=== PATIENT | female | born 1930 | race Caucasian/White ===

== ENCOUNTER 2017-05-01 17:44 | Emergency (ER) | payer MEDICARE, BC ==
[2017-05-01] MEDS: Aspirin 81 MG Tab.Chew ONE ×2 (18:07→19:31)
[2017-05-01 18:14] VITALS: BP 67/44
--- NOTE | 2017-05-01 18:16 | EDM.PDOC ---
ED HPI GENERAL MEDICAL PROBLEM - General Chief Complaint: General Stated Complaint: DEHYDRATED?? Time Seen by Provider: 05/01/17 17:56 Source of Information: Reports: Patient, EMS, Family (granddaughter) History Limitations: Reports: No Limitations - History of Present Illness INITIAL COMMENTS - FREE TEXT/NARRATIVE: Patient presents via ambulance with shortness of breath and chest heaviness. Her granddaughter says last evening pt was saying she had a little heaviness and wasn't feeling very well. EMS also reported dehydration with dyspnea. Patient has chronic A Fib and is on warfarin. She denies chest pain but still has the heaviness; it gets better at times and worse but never goes completely away. No vomiting, abdominal pain or sweating. No arm, shoulder, neck or jaw pain. No history of [place] or stents. No diabetes. She has CHF, A Fib and hypertension. - Related Data Allergies Allergy/AdvReac Type Severity Reaction Status Date / Time aspirin Allergy unknown Verified 05/01/17 18:00 [From Fiorinal-Codeine #3] butalbital Allergy unknown Verified 05/01/17 18:00 [From Fiorinal-Codeine #3] codeine phosphate Allergy unknown Verified 05/01/17 18:00 [From Fiorinal-Codeine #3] lactose Allergy Abdominal Verified 05/01/17 18:00 Pain lisinopril Allergy Cough Verified 05/01/17 18:00 Penicillins Allergy unknown Verified 05/01/17 18:00 Home Meds: Home Meds Furosemide 40 mg PO BID 11/12/13 [History] Warfarin [Coumadin] 2.5 mg PO ASDIRECTED 11/12/13 [History] amLODIPine Besylate [Amlodipine Besylate] 5 mg PO QPM 11/12/13 [History] Calcium Carbonate [Tums Extra Strength] 1,500 mg PO BEDTIME #100 tab.chew [Rx] Cholecalciferol (Vitamin D3) [Vitamin D3] 1,000 units PO DAILY #60 tablet [Rx] Metoprolol Tartrate [Lopressor] 25 mg PO BID #60 tablet 11/15/13 [Rx] Potassium Chloride [Klor-Con 10] 20 meq PO BIDM #60 tab.er 11/15/13 [Rx] Arformoterol [Brovana] 15 mcg INH BID 05/01/17 [History] Budesonide [Pulmicort] 0.5 mg INH BID 05/01/17 [History] Ca/D3/Mag#11/Zinc/Chief Nuclear Medicine Technologist/Edvin/Bor [Caltrate 600+D Plus Tablet] 1 tab PO BIDMEALS [History] Esomeprazole [NexIUM] 40 mg PO DAILY 05/01/17 [History] Levothyroxine [Synthroid] 88 mcg PO DAILY 05/01/17 [History] Losartan [Cozaar] 50 mg PO DAILY 05/01/17 [History] Melatonin/Pyridoxine HCl (B6) [Melatonin 3 mg Tablet] 3 mg PO BEDTIME 05/01/17 [ History] Metolazone [Zaroxolyn] 2.5 mg PO ASDIRECTED PRN 05/01/17 [History] Sertraline [Zoloft] 25 mg PO DAILY 05/01/17 [History] Social & Family History - Alcohol Use Days Per Week of Alcohol Use: 0 - Recreational Drug Use Recreational Drug Use: No ED ROS GENERAL - Review of Systems Review Of Systems: ROS reveals no pertinent complaints other than HPI. ED EXAM, GENERAL - Physical Exam Exam: See Below Exam Limited By: No Limitations General Appearance: Alert, WD/WN, No Apparent Distress Eye Exam: Bilateral Eye: EOMI, Normal Inspection, PERRL Ears: Normal External Exam, Hearing Grossly Normal Nose: Normal Inspection, No Blood Throat/Mouth: Normal Voice, No Airway Compromise, Other (face is somewhat pale and dusky in general.) Head: Atraumatic, Normocephalic Neck: Normal Inspection, Supple, Non-Tender, Full Range of Motion. No: Carotid Bruit Respiratory/Chest: No Respiratory Distress, Lungs Clear, Normal Breath Sounds, No Accessory Muscle Use Cardiovascular: No Edema, Bradycardia, Other (extremities are cyanotic and cool to touch) Peripheral Pulses: 0: Radial (L), Radial (R), Posterior Tibial (L), Posterior Tibial (R), Dorsalis Pedis (L), Dorsalis Pedis (R), 2+: Carotid (L), Carotid (R) GI/Abdominal: Normal Bowel Sounds, Soft, Non-Tender, No Organomegaly, No Distention Extremities: Slow Capillary Refill, Pallor Neurological: Alert, Oriented, Normal Cognition, No Motor/Sensory Deficits Psychiatric: Normal Affect, Normal Mood Skin Exam: Dry, Intact, No Rash, Cool, Pallor (dusky initially; this improved somewhat after HR and BP improved) Course - Vital Signs Last Recorded V/S: Last Vital Signs Temp 96.7 F 05/01/17 18:01 Pulse 33 L 05/01/17 18:01 Resp 23 H 05/01/17 18:01 BP 67/44 L 05/01/17 18:01 Pulse Ox 90 L 05/01/17 18:01 - Orders/Labs/Meds Orders: Active Orders 24 hr Category Date Time Status EKG Documentation Completion [RC] ASDIRECTED Care 05/01/17 18:22 Active Chest 1V Frontal [CR] Routine Exams 05/01/17 Ordered DOPamine/Dextrose 5%-Water [DOPamine in D5W 400 MG/250 Med 05/01/17 18:59 Active ML] 400 mg in 250 ml IV TITRATE EKG 12 Lead [EK] Routine Ther 05/01/17 18:22 Ordered Medication Orders Dopamine HCl/Dextrose (Dopamine In D5w 400 Mg/250 Ml) 400 mg in 250 mls @ 30.788 mls/hr IV TITRATE TONY; 10 MCG/KG/MIN PRN Reason: Protocol Last Admin: 05/01/17 18:59 Dose: 10 mcg/kg/min, 30.788 mls/hr Labs: Laboratory Tests 05/01/17 05/01/17 05/01/17 Range/Units 18:12 18:12 18:12 WBC 18.1 H (5.0-10.0) 10^3/uL RBC 5.58 H (3.80-5.50) 10^6/uL Hgb 12.6 (12.0-16.0) g/dL Hct 41.2 (37.0-47.0) % MCV 73.8 L (82.0-92.0) fL MCH 22.6 L (27.0-31.0) pg MCHC 30.6 L (32.0-36.0) g/dL RDW 17.2 H (11.5-14.5) % Plt Count 315 H (150-300) 10^3/uL MPV 9.1 (7.4-10.4) fL Neut % (Auto) 65.2 (50.0-70.0) % Lymph % (Auto) 28.7 (20.0-40.0) % Foard % (Auto) 5.3 (2.0-8.0) % Eos % (Auto) 0.4 L (1.0-3.0) % Baso % (Auto) 0.4 (0.0-1.0) % Neut # (Auto) 11.7 H (2.5-7.0) 10^3/uL Lymph # (Auto) 5.2 H (1.0-4.0) 10^3/uL Foard # (Auto) 1.0 H (0.1-0.8) 10^3/uL Eos # (Auto) 0.1 (0.1-0.3) 10^3/uL Baso # (Auto) 0.1 (0.0-0.1) 10^3/uL PT 43.9 H (8.9-11.4) SEC INR 4.1 H* (0.9-1.1) Sodium 128 L (136-145) mmol/L Potassium 6.3 H (3.3-5.3) mmol/L Chloride 93 L (98-115) mmol/L Carbon Dioxide 12.7 L (21.0-32.0) mmol/L BUN 25 (6-25) mg/dL Creatinine 2.29 H (0.51-1.17) mg/dL Est Cr Clr Drug Dosing 12.67 mL/min Estimated GFR (MDRD) 20 mL/min Glucose 107 (70-110) mg/dL POC Glucose (74-106) mg/dl Calcium 8.6 L (8.7-10.3) mg/dL Troponin I 18.11 H* (0.00-0.070) ng/mL 05/01/17 Range/Units 18:41 WBC (5.0-10.0) 10^3/uL RBC (3.80-5.50) 10^6/uL Hgb (12.0-16.0) g/dL Hct (37.0-47.0) % MCV (82.0-92.0) fL MCH (27.0-31.0) pg MCHC (32.0-36.0) g/dL RDW (11.5-14.5) % Plt Count (150-300) 10^3/uL MPV (7.4-10.4) fL Neut % (Auto) (50.0-70.0) % Lymph % (Auto) (20.0-40.0) % Foard % (Auto) (2.0-8.0) % Eos % (Auto) (1.0-3.0) % Baso % (Auto) (0.0-1.0) % Neut # (Auto) (2.5-7.0) 10^3/uL Lymph # (Auto) (1.0-4.0) 10^3/uL Foard # (Auto) (0.1-0.8) 10^3/uL Eos # (Auto) (0.1-0.3) 10^3/uL Baso # (Auto) (0.0-0.1) 10^3/uL PT (8.9-11.4) SEC INR (0.9-1.1) Sodium (136-145) mmol/L Potassium (3.3-5.3) mmol/L Chloride (98-115) mmol/L Carbon Dioxide (21.0-32.0) mmol/L BUN (6-25) mg/dL Creatinine (0.51-1.17) mg/dL Est Cr Clr Drug Dosing mL/min Estimated GFR (MDRD) mL/min Glucose (70-110) mg/dL POC Glucose 87 (74-106) mg/dl Calcium (8.7-10.3) mg/dL Troponin I (0.00-0.070) ng/mL Meds: Medications Generic Name Dose Route Start Last Admin Trade Name Freq PRN Reason Stop Dose Admin Dopamine HCl/Dextrose 400 mg in 250 mls @ 30.788 mls/hr 05/01/17 18:59 18:59 Dopamine In D5w 400 Mg/250 Ml IV 10 mcg/kg/min TITRATE TONY 30.788 mls/hr Protocol Administration 10 MCG/KG/MIN Discontinued Medications Generic Name Dose Route Start Last Admin Trade Name Freq PRN Reason Stop Dose Admin Aspirin Confirm 05/01/17 18:07 05/01/17 19:31 Aspirin Administered 05/01/17 18:08 Not Given Dose 324 mg .ROUTE .STK-MED ONE Aspirin 324 mg 05/01/17 18:21 05/01/17 18:07 Aspirin PO 05/01/17 18:22 324 mg ONETIME ONE Administration Atropine Sulfate 0.5 mg 05/01/17 18:33 05/01/17 18:34 Atropine 0.1 Mg/Ml IVPUSH 05/01/17 18:34 0.5 mg ONETIME ONE Administration Atropine Sulfate 0.5 mg 05/01/17 18:55 05/01/17 18:55 Atropine 0.1 Mg/Ml IVPUSH 05/01/17 18:56 0.5 mg ONETIME ONE Administration Calcium Gluconate 1 gm 05/01/17 18:56 05/01/17 18:58 Calcium Gluconate IVPUSH 05/01/17 18:57 1 gm ONETIME ONE Administration Clopidogrel Bisulfate Confirm 05/01/17 18:39 05/01/17 19:31 Plavix Administered 05/01/17 18:40 Not Given Dose 600 mg .ROUTE .STK-MED ONE Clopidogrel Bisulfate 600 mg 05/01/17 18:55 05/01/17 18:55 Plavix PO 05/01/17 18:56 600 mg ONETIME ONE Administration Sodium Chloride 1,000 mls @ 999 mls/hr 05/01/17 18:21 05/01/17 18:07 Normal Saline IV 05/01/17 19:21 999 mls/hr .BOLUS ONE Administration Sodium Chloride Confirm 05/01/17 19:06 05/01/17 19:31 Normal Saline Administered 05/01/17 19:07 Not Given Dose 2,000 mls @ as directed .ROUTE .STK-MED ONE Insulin Human Regular Confirm 05/01/17 18:49 05/01/17 18:54 Novolin R Administered 05/01/17 18:50 10 unit Dose Administration 1,000 unit .ROUTE .STK-MED ONE Insulin Human Regular 10 unit 05/01/17 18:51 05/01/17 19:44 Novolin R IV 05/01/17 18:52 10 unit ONETIME ONE Administration Protocol Sodium Bicarbonate 50 meq 05/01/17 18:52 05/01/17 18:52 Sodium Bicarbonate 8.4% IVPUSH 05/01/17 18:53 50 meq ONETIME ONE Administration - Re-Assessments/Exams Free Text/Narrative Re-Assessment/Exam: 05/01/17 19:50 EKGs showed HR 31 and 34 and AFib with slow ventricular response. STEMI in inferior leads: I consulted with [facility] card punching machine operator at this point to arrange transfer for cath lab tech and likely pacemaker. Later we got trop of 18.1, Potas 6.3, WBC 18.1, INR 4.1 along with other labs out of range. Merged with [facility] was also consulted to help manage patient and record for us while Jas soto was coming here. IV fluids, atropine and dopamine drip were supporting her pressure. BP was as low as 56/12 at one point. Patient remained conversive and alert throughout the entire ER course and was successfully expedited to [facility] for intervention. 05/01/17 19:58 The entire ER course was acute and intense medical care. Please refer to [facility] record for detailed documentation of the course of the visit. Departure - Departure Time of Disposition: 19:22 Disposition: DC/Tfer to Acute Hospital 02 Condition: Critical Clinical Impression: STEMI (ST elevation myocardial infarction), Bradycardia, Hypotension - Discharge Information Referrals: Marysol Juárez PA-C [Primary Care Provider] - Forms: ED Department Discharge - My Orders Last 24 Hours: My Active Orders 05/01/17 Chest 1V Frontal [CR] Routine 05/01/17 18:22 EKG Documentation Completion [RC] ASDIRECTED EKG 12 Lead [EK] Routine 05/01/17 18:59 DOPamine/Dextrose 5%-Water [DOPamine in D5W 400 MG/250 ML] 400 mg in 250 ml IV TITRATE - Assessment/Plan Last 24 Hours: My Active Orders 05/01/17 Chest 1V Frontal [CR] Routine 05/01/17 18:22 EKG Documentation Completion [RC] ASDIRECTED EKG 12 Lead [EK] Routine 05/01/17 18:59 DOPamine/Dextrose 5%-Water [DOPamine in D5W 400 MG/250 ML] 400 mg in 250 ml IV TITRATE
[2017-05-01] MEDS ORDERED: Sodium Chloride 0.9% 1,000 ML IV ONE (18:21)
[2017-05-01] MEDS ORDERED: Aspirin 81 MG Tab.Chew PO ONE (18:21)
[2017-05-01] MEDS ORDERED: Atropine 0.1 MG/ML 10 ML Syringe IVPUSH ONE ×3 (18:33→19:37)
[2017-05-01] MEDS ORDERED: Clopidogrel 75 MG Tab ONE (18:39)
[2017-05-01] MEDS ORDERED: Insulin Regular, Human 100 Units/ML 10 ML Vial ONE (18:49)
[2017-05-01] MEDS ORDERED: Insulin Regular, Human 100 Units/ML 10 ML Vial IV ONE (18:51)
[2017-05-01] MEDS ORDERED: Sodium Bicarbonate 8.4% 50 MEQ/50 ML Syringe IVPUSH ONE (18:52)
[2017-05-01] MEDS ORDERED: Clopidogrel 75 MG Tab PO ONE (18:55)
[2017-05-01] MEDS ORDERED: Calcium Gluconate 10% 1 GM/10 ML SDV IVPUSH ONE (18:56)
[2017-05-01] MEDS ORDERED: DOPamine/Dextrose 5%-Water 400 MG/250 ML BAG IV SCH (18:59)
[2017-05-01] MEDS ORDERED: Sodium Chloride 0.9% 2,000 ML ONE (19:06)
[2017-05-02] MEDS ORDERED: 50% Dextrose in Water 50 ML Syringe IVPUSH ONE
[2017-05-04] MEDS ORDERED: Insulin Regular, Human 100 Units/ML 10 ML Vial IVPUSH ONE (09:19)
== END 2017-05-01 19:22 ==
LOC: KA.ED 17:44
DX: I21.3 ST elevation (STEMI) myocardial infarction of unspecified site (principal); I95.9 Hypotension, unspecified; R00.1 Bradycardia, unspecified; I48.91 Unspecified atrial fibrillation; I11.0 Hypertensive heart disease with heart failure; I50.9 Heart failure, unspecified; Z88.0 Allergy status to penicillin; Z88.5 Allergy status to narcotic agent; Z88.8 Allergy status to other drugs, medicaments and biological substances; Z79.01 Long term (current) use of anticoagulants; Z79.899 Other long term (current) drug therapy
CPT/HCPCS: 36415; 71010; 80048; 82962; 84484; 85025; 85610; 96361; 96365; 96374; 96375; 99291; 99292; A9270; J0461; J0610; J1265; J1817; J7030; 93005; J7060